=== PATIENT | male | born 2000 | race Hispanic/Latino ===

== ENCOUNTER → 2019-07-21 | Outpatient (CLI) | payer OTHER ==
--- NOTE | 2019-07-22 09:44 | REP ---
Clinical: Sternal chest pain. Technique: Axial noncontrast images from the thoracic inlet to the upper abdomen with coronal and sagittal re-formations. Comparison: None. Findings: The bilateral lung molina are well-aerated and clear. No consolidation, nodule or mass. No effusion. No pneumothorax. Tracheobronchial tree is patent. Mediastinum demonstrates normal thoracic aorta, pulmonary vasculature and heart/pericardium. No adenopathy. The surrounding musculoskeletal structures including the sternum appear intact and essentially normal. No evidence for injury. No periosteal reaction or findings to suggest an acute osseous process. Impression: Normal noncontrast chest CT. Normal appearance to the sternum. Electronically Signed by Mitchel Preston MD 07/22/2019 09:36 A
== END ==
LOC: M RAD 14:02
PROVIDERS: ATTEND General Practice
DX: R07.2 Precordial pain (principal)